=== PATIENT | male | born 1980 | race Caucasian/White ===

== ENCOUNTER 2017-08-31 20:29 | Emergency (ER) | payer OTHER ==
[~2017-08-31] VITALS: Ht 165.1 cm; Wt 69.0 kg
[2017-08-31 20:31] VITALS: BP 136/82; PULSE 89; RESP 16; TEMP 98.3; O2SAT 96
[2017-08-31] MEDS ORDERED: XANA1TAB2 PO (20:31)
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
[2017-08-31] MEDS ORDERED: ceFAZolin 2 GM PREMIX 50 ML IV ONE (20:45)
[2017-08-31] MEDS ORDERED: TETANUS/DIPHTHERIA TOXOID ADULT 0.5 ML VIAL IM ONE (20:45)
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
[2017-08-31] MEDS ORDERED: IOHEXOL 350 MG/ML 10 ML VIAL (for RAD DIAG) IVCONTRAST ONE (21:20)
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
[2017-08-31] MEDS ORDERED: LIDOCAINE 1%/EPINEPHrine 1:100,000 SOLN 20 ML VIAL INFIL ONE (21:45)
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
== END 2017-08-31 23:27 | disposition home or self-care (01) ==
LOC: NEPC 20:29
DX: S01.81XA Laceration without foreign body of other part of head, initial encounter (principal); S81.011A Laceration without foreign body, right knee, initial encounter; R41.3 Other amnesia; M54.2 Cervicalgia; R07.81 Pleurodynia; V44.5XXA Car driver injured in collision with heavy transport vehicle or bus in traffic accident, initial encounter; Z23 Encounter for immunization
CPT/HCPCS: 12002; 12013; 70450; 71260; 72125; 73564; 74177; 90471; 90714; 96365; 99291; J0690; Q9967